=== PATIENT | male | born 1945 | race Caucasian/White ===

== ENCOUNTER → 2016-02-16 | Outpatient (CLI) | payer MEDICARE | LOC: GMAJ 11:16 | PROVIDERS: ATTEND Family Medicine | DX: Z79.899 Other long term (current) drug therapy (principal) ==

== ENCOUNTER → 2016-02-23 | Outpatient (CLI) | payer MEDICARE | LOC: GMAJ 11:25 | PROVIDERS: ATTEND Family Medicine | DX: Z79.899 Other long term (current) drug therapy (principal) ==

== ENCOUNTER → 2016-03-01 | Outpatient (CLI) | payer MEDICARE | LOC: GMAJ 11:39 | PROVIDERS: ATTEND Family Medicine | DX: M86.112 Other acute osteomyelitis, left shoulder (principal) ==

== ENCOUNTER → 2016-04-10 | Outpatient (CLI) | payer MEDICARE | END | disposition home or self-care (01) | LOC: GMAJ 11:18 | PROVIDERS: ATTEND Family Medicine | DX: Z12.5 Encounter for screening for malignant neoplasm of prostate (principal) ==

== ENCOUNTER → 2017-01-01 | Outpatient (CLI) | payer MEDICARE ==
--- NOTE | 2017-01-01 16:06 | RAD ---
EXAM DESCRIPTION: Wrist,Left 3 Views CLINICAL HISTORY: 71 years, Male, MASS OF SKIN, SWELLING COMPARISON: FINDINGS: No definite acute fracture or dislocation. Radiocarpal joint space narrowed. On the oblique frontal projection a well-circumscribed calcific 2 mm density distal to the mid ulnar appears chronic and may be an old injury. Moderately severe narrowing of the 1st carpometacarpal joint with sclerosis and spurring. IMPRESSION: Moderately advanced degenerative changes particularly 1st carpometacarpal joint. No definite acute fracture or dislocation Electronically signed by: Max Ross MD 01/01/2017 4:04 PM [facility]
== END | disposition home or self-care (01) ==
LOC: RAD 07:57
PROVIDERS: ATTEND Orthopaedic Surgery
DX: R22.9 Localized swelling, mass and lump, unspecified (principal)

== ENCOUNTER → 2017-03-02 | Outpatient (CLI) | payer MEDICARE | END | disposition home or self-care (01) | LOC: GMAJ 12:10 | PROVIDERS: ATTEND Family Medicine | DX: E29.9 Testicular dysfunction, unspecified (principal) ==

== ENCOUNTER → 2017-12-12 | Outpatient (CLI) | payer MEDICARE | LOC: GMAJ 10:55 | PROVIDERS: ATTEND Family Medicine | DX: Z12.5 Encounter for screening for malignant neoplasm of prostate (principal) ==